=== PATIENT | male | born 1985 | race Caucasian/White ===

== ENCOUNTER 2020-04-21 13:27 | Emergency (ER) | payer MEDICAID, SELFPAY ==
[2020-04-21 13:52] VITALS: BP 150/91; PULSE 72; RESP 16; TEMP 36.7; O2SAT 93; BMI 47.5
--- NOTE | 2020-04-21 14:27 | HMH.EDUTC ---
[facility] [place] Disposition Clinical Impression: Exposure to COVID-19 virus Disposition: Home, Self-Care Condition on Discharge: Good Instructions: Preventing the Spread of Coronavirus Discharge Instructions Additional Instructions: Drink plenty of fluids. Take tylenol for pain or fever. Follow up with your regular doctor. GO TO THE ER FOR ANY WORSENING SYMPTOMS FOLLOW THE DIRECTIONS ON THE COVID-19 HAND OUT THAT WE GAVE YOU REGARDING SELF-ISOLATION UNTIL YOU KNOW YOUR COVID-19 RESULTS Referrals: PCP,No [Primary Care Provider] - Forms: Work/School Release Time of Disposition: 14:39 Medical Decision Making - Medical Records Medical records reviewed: No: I reviewed the patient's medical records. - Theo Inquiry Pt receiving controlled substance: No Vital Signs: 04/21/20 13:52 04/21/20 14:46 Temperature 98.1 F 98.1 F Temperature Source Oral Oral Pulse Rate 72 Pulse Rate [Radial] 72 Respiratory Rate 16 16 Blood Pressure 150/91 H Blood Pressure [Right Arm] 150/91 H Blood Pressure Mean [Right Arm] 110 Blood Pressure Source Automatic Cuff Blood Pressure Source [Right Arm] Automatic Cuff Blood Pressure Position Sitting Blood Pressure Position [Right Arm] Sitting 02 Sat by Pulse Oximetry 93 L Oxygen Delivery Method Room Air Room Air Orders (Tests/Meds): ORDERS Category Date Time Status Covid-19 Nasal PCR Sendout Adam Routine Lab 04/21/20 13:45 Received [facility] [place] HPI - General Stated complaint: weakness wants covid test Time Seen by Provider: 04/21/20 13:35 Mode of Arrival: Ambulatory Source of Information: Patient Limitations: No Limitations Description of Symptoms (Recalled from Triage Doc. by RN): POSSIBLE EXPOSURE TO COVID HEENT Symptoms (Recalled from RN notes): No Resp Symptoms (Recalled from RN notes): No Skin Symptoms (Recalled from RN notes): No MS Symptoms (Recalled from RN notes): No Functional Status (Recalled from RN notes): WNL - History of Present Illness Provider Complaint: He c/o feeling weak and not feeling well since yesterday. He has had some deep leg pain. He denies any fever or chills or respiratory symptoms. - Related Data Previous Rx's Medication Instructions Recorded Azithromycin [Z-Ian 250mg Tab*] 250 mg PO UD DOSE PK #6 tab 03/26/19 Brompheniramine/Pseudoephed/Dm 5 ml PO Q6HP PRN #240 syrup 03/26/19 [Bromfed Dm Cough Syrup] guaiFENesin [Mucinex 600mg tablet] 600 mg PO BIDP PRN #30 tab.er.12h 03/26/19 methylPREDNISolone [Medrol] 4 mg PO DIRECTED 6 Days #21 03/26/19 tab.ds.pk Allergies Allergy/AdvReac Type Severity Reaction Status Date / Time No Known Allergies Allergy Verified 03/26/19 16:04 - Worker's Comp Is this a Worker's Comp case?: No H History - Hepatitis A Screen Drug use history?: No High risk sexual behaviors?: No History of sexually transmitted infection?: No Currently employed?: No Childcare worker?: No Do you have indoor plumbing?: Yes Do you have electricity?: Yes Attestation statement:: This patient has been screened for Hepatitis A risk factors. I have reviewed the patient's past medical history: Yes - Social History Smoking Status: Unknown if ever smoked Tobacco Type: smokeless tobacco # Packs/Day (cigarettes): 0 Alcohol Intake: never Occupational Status: employed ROS Obtained: Yes All systems reviewed & no additional complaints - Constitutional Constitutional: Reports system reviewed and no additional complaints, except as docu - Eyes Eyes: Reports system reviewed and no additional complaints, except as docu - ENT Ears, Nose, Mouth, and Throat: Reports system reviewed and no additional complaints, except as docu - Cardiovascular Cardiovascular: Reports system reviewed and no additional complaints, except as docu - Respiratory Respiratory: Yes system reviewed and no additional complaints, except as docu - Gastrointestinal Gastrointestingal: Reports: system reviewed and n
[2020-04-21 14:46] VITALS: BP 150/91; PULSE 72; RESP 16; TEMP 36.7; O2SAT 93
[2020-04-22 14:14] LABS: Covid-19 Nasal PCR Sendout Lex NOT DETECTED
== END 2020-04-21 14:47 | disposition home or self-care (01) ==
PROVIDERS: Emergency Provider Nurse Practitioner Family
DX: Z20.828 Contact with and (suspected) exposure to other viral communicable diseases (principal)
CPT/HCPCS: 99201; U0004

== ENCOUNTER 2020-07-04 17:09 | Emergency (ER) | payer MEDICAID, SELFPAY ==
[2020-07-04 17:19] VITALS: BP 140/84; PULSE 79; RESP 19; TEMP 36.8; O2SAT 97; BMI 56.9
[2020-07-04 17:41] VITALS: BP 140/84; PULSE 79; RESP 19; TEMP 36.8; O2SAT 97; BMI 56.9
--- NOTE | 2020-07-04 17:47 | HMH.EDUTC ---
[facility] [place] Disposition Clinical Impression: Sinusitis Qualifiers: Sinusitis location: unspecified location Chronicity: acute Recurrence: non-recurrent Qualified Code(s): J01.90 - Acute sinusitis, unspecified Disposition: Home, Self-Care Condition on Discharge: Good Instructions: Sinusitis, DI for Sinusitis Additional Instructions: Drink plenty of fluids. Take tylenol or ibuprofen for pain or fever. Take the medications as directed. Follow up with your regular doctor. GO TO THE ER FOR ANY WORSENING SYMPTOMS Prescriptions: Brompheniramine/Pseudoephed/Dm [Bromfed Dm Cough Syrup] 5 ml PO Q6HP PRN #240 syrup PRN Reason: Cough Transmission Status: Received by [facility] Amoxicillin/Potassium Clav [Augmentin 875-125 Tablet] 1 tab PO Q12H 10 Days #20 tab Transmission Status: Received by [facility] predniSONE [Deltasone 10mg tablet] 10 mg PO BID 4 Days #8 tab Transmission Status: Received by [facility] Referrals: PCP,No [Primary Care Provider] - Time of Disposition: 18:21 Medical Decision Making - Medical Records Medical records reviewed: No: I reviewed the patient's medical records. - Theo Inquiry Pt receiving controlled substance: No Vital Signs: 07/04/20 17:19 07/04/20 17:41 07/04/20 18:36 Temperature 98.3 F 98.3 F 98.3 F Temperature Source Oral Oral Pulse Rate 79 Pulse Rate [Left] 79 79 Respiratory Rate 19 19 19 Blood Pressure 140/84 Blood Pressure [Right Arm] 140/84 140/84 Blood Pressure Mean [Right Arm] 102 102 Blood Pressure Source [Right Arm] Manual Cuff/ Palpation Automatic Cuff Blood Pressure Position [Right Arm] Sitting Sitting 02 Sat by Pulse Oximetry 97 97 Oxygen Delivery Method Room Air Room Air Orders (Tests/Meds): ED MEDICATIONS Discontinued Medications Generic Name Dose Route Start Last Admin Trade Name Freq PRN Reason Stop Dose Admin Ceftriaxone Sodium 1 gm 07/04/20 17:51 07/04/20 18:06 Ceftriaxone 1gm Vial IM 07/04/20 17:52 1 gm ONCE ONE Administration Protocol Lidocaine HCl 0 ml 07/04/20 17:51 07/04/20 18:06 Lidocaine 1% 5ml Pf Vial IM 07/04/20 17:52 2.1 ml ONCE ONE Administration Methylprednisolone Sodium Succinate 125 mg 07/04/20 17:51 07/04/20 18:03 Methylprednisolone Sod Succ 125mg Vial IM 07/04/20 17:52 125 mg ONCE ONE Administration [facility] [place] HPI - General Stated complaint: head congestion Time Seen by Provider: 07/04/20 17:47 Source of Information: Patient, Spouse, Significant Other HEENT Symptoms (Recalled from RN notes): No Resp Symptoms (Recalled from RN notes): Yes Skin Symptoms (Recalled from RN notes): No MS Symptoms (Recalled from RN notes): No Functional Status (Recalled from RN notes): wnl - History of Present Illness Provider Complaint: He c/o sinus congestion and ear pain for the past 3 days. He denies any fever or chills. - Related Data Previous Rx's Medication Instructions Recorded Amoxicillin/Potassium Clav 1 tab PO Q12H 10 Days #20 tab 07/04/20 [Augmentin 875-125 Tablet] Brompheniramine/Pseudoephed/Dm 5 ml PO Q6HP PRN #240 syrup 07/04/20 [Bromfed Dm Cough Syrup] predniSONE [Deltasone 10mg tablet] 10 mg PO BID 4 Days #8 tab 07/04/20 Allergies Allergy/AdvReac Type Severity Reaction Status Date / Time No Known Allergies Allergy Verified 07/04/20 17:44 - Worker's Comp Is this a Worker's Comp case?: No Is this an [facility] Worker's Comp?: No Is this a [place] Worker's Comp?: No [facility] History - Hepatitis A Screen Drug use history?: No High risk sexual behaviors?: No History of sexually transmitted infection?: No Currently employed?: No Childcare worker?: No Do you have indoor plumbing?: No Do you have electricity?: Yes Attestation statement:: This patient has been screened for Hepatitis A risk factors. I have reviewed the patient's past medical history: Yes - Social History Smoking Status: Never smoker Tobacco Type: smok
[2020-07-04 18:36] VITALS: BP 140/84; PULSE 79; RESP 19; TEMP 36.8; O2SAT 97
== END 2020-07-04 18:48 | disposition home or self-care (01) ==
PROVIDERS: Emergency Provider Nurse Practitioner Family
DX: J01.90 Acute sinusitis, unspecified (principal); F17.290 Nicotine dependence, other tobacco product, uncomplicated
CPT/HCPCS: 96372; 99201

== ENCOUNTER 2020-07-16 11:54 | Emergency (ER) | payer MEDICAID, SELFPAY ==
[2020-07-16 12:20] VITALS: BP 148/91; PULSE 68; RESP 19; TEMP 36.8; O2SAT 98; BMI 54.5
--- NOTE | 2020-07-16 12:50 | HMH.EDUTC ---
[facility] [place] Disposition Clinical Impression: Exposure to COVID-19 virus Disposition: Home, Self-Care Condition on Discharge: Good Instructions: DI for COVID-19 (Suspected or Confirmed ), COVID-19: Testing and Tracing, Preventing the Spread of Coronavirus Discharge Instructions Additional Instructions: *Monitor Temp, Over the counter Motrin or Tylenol as directed/as needed Tylenol every 4 hours and Motrin every 6 hours (as long as your family doctor has told you that you can take it) for fever or pain. and straight to ER if unable to lower temp less than 101.0 after medication given Follow up IMMEDIATELY for new or worsening symptoms or no Noticeable improvement over the next 48-72 hours. 911 for difficulty breathing or swallowing You were tested for today for COVID19 your test result should be back in the next 24-48 hours, you may call to the [facility] to see if your test results are back in the next 48 hours [phone] [facility] hours are 9am-9pm You was given a handout with instructions for Self Quarantine and Self isolation for while you wait on test results and what to do if they are positive If you are positive the Health Dept will be contacting you also Referrals: PCP,No [Primary Care Provider] - As needed Forms: Work/School Release Time of Disposition: 12:51 Medical Decision Making - Theo Inquiry Pt receiving controlled substance: No Theo was queried for this patient: No Vital Signs: 07/16/20 12:20 Temperature 98.3 F Temperature Source Oral Pulse Rate [Right Brachial] 68 Respiratory Rate 19 Blood Pressure [Right Arm] 148/91 H Blood Pressure Mean [Right Arm] 110 Blood Pressure Source [Right Arm] Automatic Cuff Blood Pressure Position [Right Arm] Sitting 02 Sat by Pulse Oximetry 98 Oxygen Delivery Method Room Air Orders (Tests/Meds): ORDERS Category Date Time Status Covid-19 Nasal PCR ([facility]) Routine Lab 07/16/20 11:56 Ordered [facility] [place] HPI - General Stated complaint: covid test Time Seen by Provider: 07/16/20 12:50 Mode of Arrival: Ambulatory Source of Information: Patient Limitations: No Limitations Description of Symptoms (Recalled from Triage Doc. by RN): COVID TEST D/T EXPOSURE. C/O FATIGUE X 2 DAYS HEENT Symptoms (Recalled from RN notes): No Resp Symptoms (Recalled from RN notes): No Skin Symptoms (Recalled from RN notes): No MS Symptoms (Recalled from RN notes): No Functional Status (Recalled from RN notes): WNL - History of Present Illness Provider Complaint: Patient states that mother recently tested positive for COVID States that he lives with her and has been feeling tired and having body aches so he come in to get tested - Related Data Allergies Allergy/AdvReac Type Severity Reaction Status Date / Time No Known Allergies Allergy Verified 07/04/20 17:44 - Worker's Comp Is this a Worker's Comp case?: No H History - Hepatitis A Screen Drug use history?: No High risk sexual behaviors?: No History of sexually transmitted infection?: No Currently employed?: No Childcare worker?: No Do you have indoor plumbing?: Yes Do you have electricity?: Yes Attestation statement:: This patient has been screened for Hepatitis A risk factors. I have reviewed the patient's past medical history: Yes - Social History Smoking Status: Never smoker Tobacco Type: smokeless tobacco # Packs/Day (cigarettes): 0 Alcohol Intake: never Occupational Status: other ROS Obtained: Yes All systems reviewed & no additional complaints, Yes Systems reviewed as appropriate & no additional complaints - Constitutional Constitutional: Reports system reviewed and no additional complaints, except as docu, Reports body ache, Reports fatigue Physical Exam - General General appearance: alert, in no apparent distress - ENT ENT exam: Present: normal exam, normal oropharynx, mucous membranes moist, TM's normal bilaterally, normal external ear exam - Respiratory Respiratory exam: Present: normal lung sounds b
[2020-07-16 13:02] VITALS: BP 148/91; PULSE 68; RESP 19; TEMP 36.8; O2SAT 98
--- NOTE | 2020-07-16 20:36 | PC.NURSE ---
PT NOTIFIED OF POSITIVE COVID RESULT
== END 2020-07-16 13:03 | disposition home or self-care (01) ==
PROVIDERS: Emergency Provider Nurse Practitioner
DX: U07.1 COVID-19 (principal)
CPT/HCPCS: 99202; G0463; U0003

== ENCOUNTER → 2021-08-07 13:24 | Outpatient (CLI) | payer MEDICAID, SELFPAY | PROVIDERS: Visit Provider Nurse Practitioner | DX: U07.1 COVID-19 (principal) | CPT/HCPCS: C9803; U0003; U0005 ==

== ENCOUNTER 2021-09-13 14:51 | Emergency (ER) | payer MEDICAID, SELFPAY ==
--- NOTE | 2021-09-13 15:45 | HMH.EDUTC ---
[facility] [place] Disposition Clinical Impression: Ingrown nail Cellulitis Qualifiers: Site of cellulitis: extremity Site of cellulitis of extremity: lower extremity Laterality: left Qualified Code(s): L03.116 - Cellulitis of left lower limb Disposition: Home, Self-Care Condition on Discharge: Good Instructions: Cellulitis, DI for Infected Ingrown Toenail Additional Instructions: Soak the foot in warm epsom salts water three or four times per day. Take the antibiotics as directed. Follow up with your regular doctor. Follow up with Dr. Olmos (podiatry). I put in referral but you need to call her office and get an appointment. GO TO THE ER FOR ANY WORSENING SYMPTOMS OR CONCERNS Prescriptions: Mupirocin [Bactroban 2% Ointment 22gm tube] 1 applicatio TP TID 7 Days #1 gm Transmission Status: Pending to [facility] cephALEXin [cephALEXin 500mg capsule] 500 mg PO Q6H 10 Days #40 cap Transmission Status: Pending to [facility] Referrals: Provider,MD Héctor [Primary Care Provider] - Leti Olmos DPM [Staff Physician] - Time of Disposition: 17:07 Medical Decision Making - Medical Records Medical records reviewed: No: I reviewed the patient's medical records. - Theo Inquiry Pt receiving controlled substance: No Vital Signs: 09/13/21 15:52 Temperature 98.3 F Temperature Source Oral Pulse Rate [Left Radial] 68 Respiratory Rate 19 Blood Pressure [Left Arm] 148/91 H Blood Pressure Mean [Left Arm] 110 Blood Pressure Source [Left Arm] Automatic Cuff Blood Pressure Position [Left Arm] Sitting 02 Sat by Pulse Oximetry 98 Oxygen Delivery Method Room Air Orders (Tests/Meds): ED MEDICATIONS Discontinued Medications Generic Name Dose Route Start Last Admin Trade Name Freq PRN Reason Stop Dose Admin Ceftriaxone Sodium 1 gm 09/13/21 16:38 09/13/21 16:47 Ceftriaxone 1gm Vial IM 09/13/21 16:39 1 gm ONCE ONE Administration Lidocaine HCl 0 ml 09/13/21 16:38 09/13/21 16:47 Lidocaine 1% 5ml Pf Vial IM 09/13/21 16:39 2 ml ONCE ONE Administration [facility] [place] HPI - General Stated complaint: infected toenail lt foot Time Seen by Provider: 09/13/21 15:45 - History of Present Illness Provider Complaint: He has had pain and swelling around the medial fold of his right great toe for the past 10 days. He denies any injury. - Related Data Previous Rx's Medication Instructions Recorded Mupirocin [Bactroban 2% Ointment 1 applicatio TP TID 7 Days #1 gm 09/13/21 22gm tube] cephALEXin [cephALEXin 500mg 500 mg PO Q6H 10 Days #40 cap 09/13/21 capsule] Allergies Allergy/AdvReac Type Severity Reaction Status Date / Time No Known Allergies Allergy Verified 07/04/20 17:44 [facility] History - Hepatitis A Screen Attestation statement:: This patient has been screened for Hepatitis A risk factors. I have reviewed the patient's past medical history: Yes - Social History Smoking Status: Never smoker Tobacco Type: smokeless tobacco # Packs/Day (cigarettes): 0 Alcohol Intake: never Occupational Status: other ROS Obtained: Yes All systems reviewed & no additional complaints - Constitutional Constitutional: Denies chills, Denies fever(s) - Musculoskeletal Musculoskeletal: Reports as per HPI - Integumentary/Breasts Skin/Breast: Reports as per HPI - Neurologic Neurologic: Denies tingling/numbness/burning sensations Physical Exam - General General appearance: alert, in no apparent distress - Head Head exam: atraumatic, normocephalic, normal inspection - Eye Eye exam: Present: normal appearance, PERRL, EOMI - ENT ENT exam: Present: normal exam, normal oropharynx, mucous membranes moist, normal external ear exam - Neck Neck exam: Present: normal inspection, full ROM, trachea midline. Absent: meningismus, lymphadenopathy - Chest Chest inspection: Present: normal inspection, symmetric chest wall rise. Absent: tenderness
[2021-09-13 15:52] VITALS: BP 148/91; PULSE 68; RESP 19; TEMP 36.8; O2SAT 98; BMI 48.8
[2021-09-13 17:15] VITALS: BP 150/92; PULSE 87; RESP 16; TEMP 36.8; O2SAT 98
== END 2021-09-13 17:15 | disposition home or self-care (01) ==
PROVIDERS: Emergency Provider Nurse Practitioner Family
DX: L60.0 Ingrowing nail (principal); L03.116 Cellulitis of left lower limb
CPT/HCPCS: 96372; 99212; G0463; J0696

== ENCOUNTER 2024-01-14 14:48 | Outpatient (CLI) | payer MEDICAID, SELFPAY ==
[2024-01-14 15:55] VITALS: BMI 47.0
== END 2024-01-14 23:59 | disposition home or self-care (01) ==
LOC: DIETICIAN 14:50
PROVIDERS: PCP Internal Medicine; Visit Provider Internal Medicine
DX: E66.01 Morbid (severe) obesity due to excess calories (principal); Z68.42 Body mass index [BMI] 45.0-49.9, adult
CPT/HCPCS: 97802

== ENCOUNTER 2024-02-18 18:57 | Outpatient (CLI) | payer MEDICAID, SELFPAY ==
[2024-02-18 19:26] LABS: Basophils % 0.5 % (0.1-2.0); Eosinophils # 0.1 K/mm3 (0.0-0.4); Eosinophils % 1.4 % (0.1-12.0); Hematocrit 51.6 % (42.0-52.0); Lymphocytes # 1.8 K/mm3 (0.7-4.5); Lymphocytes % 22.5 % (10-50); Mean Corpuscular HGB Conc 30.9 g/dL (31.8-35.4); Mean Corpuscular Hemoglobin 28.9 pg (27.0-31.2); Mean Corpuscular Volume 93.4 fl (80-94); Monocytes # 0.6 K/mm3 (0.1-1.0); Monocytes % 7.6 % (1.7-9.3); Neutrophils # 5.3 K/mm3 (1.8-7.8); Neutrophils % 68.1 % (37.0-80.0); Platelet Count 277 K/mm3 (142-424); Red Blood Count 5.53 M/mm3 (4.60-6.20); Red Cell Distribution Width 14.6 % (11.5-17.5); White Blood Count 7.9 K/mm3 (4.8-10.8)
[2024-02-18 19:46] LABS: Albumin Level 4.3 g/dl (3.5-5.0); Chloride 104 mmol/L (98-107); Sodium 138 mmol/L (136-145)
[2024-02-18 19:47] LABS: Potassium 4.5 mmoL/L (3.5-5.1)
[2024-02-18 19:49] LABS: Alanine Aminotransferase 39 U/L (12-78); Albumin/Globulin Ratio 1.8 (1.1-1.8); Alkaline Phosphatase 65 U/L (38-126); Anion Gap 7.5 mEq/L (5-15); Aspartate Amino Transferase 38 U/L (17-59); Bilirubin,Total 0.8 mg/dl (0.2-1.3); Blood Urea Nitrogen 14 mg/dl (9-20); Carbon Dioxide 31 mmol/L (22.0-30.0); Estimated Glomerular Filt Rate 93 ml/min (>60); GFR (African American) 113 ML/MIN (>60); Globulin 2.4 g/dL (1.3-3.2); Total Protein,Serum 6.7 g/dl (6.3-8.2)
[2024-02-18 19:50] LABS: Calcium 9.1 mg/dl (8.4-10.2); Chol/HDL Ratio 2.9 (1-3.5); Cholesterol 138 mg/dl (140-200); Glucose 95 mg/dl (74-100); HDL Cholesterol 48 mg/dl (40-60); Triglycerides 38 mg/dl (30-150); VLDL Cholesterol 8 mg/dL (0-40)
[2024-02-18 20:01] LABS: Direct LDL Cholesterol 68.16 mg/dL (100-129)
[2024-02-18 20:21] LABS: Thyroid Stimulating Hormone 1.57 uIU/mL (0.465-4.68)
[2024-02-18 20:35] LABS: Creatinine,Urine Random 175 mg/dL (Not Estab.)
[2024-02-18 20:38] LABS: Microalbumin/Creatinine Ratio 3.4
[2024-02-18 20:50] LABS: 25-OH Vitamin D, Total 24.3 ng/mL (30-100)
[2024-02-18 21:03] LABS: Prostate Specific Ag Screen 0.7 ng/ml (0.0-4.0)
== END 2024-02-18 23:59 | disposition home or self-care (01) ==
LOC: LAB.DROPOF 18:58
PROVIDERS: PCP Internal Medicine; Visit Provider Internal Medicine
DX: Z00.00 Encounter for general adult medical examination without abnormal findings (principal)
CPT/HCPCS: 80050; 80053; 80061; 82043; 82306; 82570; 84443; 85025; G0103

== ENCOUNTER 2024-02-18 19:05 | Outpatient (CLI) | payer MEDICAID, SELFPAY | END 2024-02-18 23:59 | disposition home or self-care (01) | LOC: LAB.DROPOF 19:06 | PROVIDERS: PCP Internal Medicine; Visit Provider Internal Medicine | DX: Z02.9 Encounter for administrative examinations, unspecified (principal) ==

== ENCOUNTER → 2024-02-27 10:27 | Outpatient (CLI) | payer MEDICAID, SELFPAY | LOC: SL 10:27 | PROVIDERS: PCP Internal Medicine; Visit Provider Specialist | DX: G47.33 Obstructive sleep apnea (adult) (pediatric) (principal); G47.36 Sleep related hypoventilation in conditions classified elsewhere | CPT/HCPCS: G0399 ==

== ENCOUNTER → 2024-04-22 20:27 | Outpatient (CLI) | payer MEDICAID, SELFPAY | LOC: SL 20:28 | PROVIDERS: PCP Internal Medicine; Visit Provider Specialist | DX: G47.33 Obstructive sleep apnea (adult) (pediatric) (principal); R06.83 Snoring; Z91.89 Other specified personal risk factors, not elsewhere classified; E66.01 Morbid (severe) obesity due to excess calories; Z68.41 Body mass index [BMI] 40.0-44.9, adult | CPT/HCPCS: 95810 ==

== ENCOUNTER 2024-04-27 18:30 | Emergency (ER) | payer MEDICAID, SELFPAY ==
[2024-04-27 18:50] VITALS: BP 130/91; PULSE 74; RESP 19; TEMP 36.8; O2SAT 96; BMI 50.4
--- NOTE | 2024-04-27 19:20 | ED_ITS ---
Discharge Plan Disposition Patient Disposition: Home, Self-Care Condition: Good Prescriptions Prescriptions: New azithromycin [Zithromax Z-Ian] 250 mg tablet See Rx Instructions .ROUTE .COMPLEX 5 Days Qty: 6 0RF Rx Instructions: For 250 mg dose pack: take 500 mg today (day 1), then 250 mg for 4 days (days 2-5) benzonatate 100 mg capsule 100 mg PO TID PRN (Reason: cough) Qty: 30 0RF methylprednisolone [Medrol (Ian)] 4 mg tablets,dose pack See Rx Instructions .Route .COMPLEX 6 Days Qty: 21 0RF Rx Instructions: taper pack; Referrals Follow up/Referrals: Esteban Stuart DO [Primary Care Provider] - See instructions Activity Restrictions/Add. Instructions Additional Instructions/Restrictions: *Monitor Temp, Over the counter Motrin or Tylenol as directed/as needed Tylenol every 4 hours and Motrin every 6 hours (as long as your family doctor has told you that you can take it) for fever or pain. and straight to ER if unable to lower temp less than 101.0 after medication given *Warm salt water gargles may help to soothe the throat *Throat Lozenges? *Warm fluids like tea with honey may help to soothe the throat?and help with irritation from the drainage? *Sleep elevated *Humidifier/Vaporizer Take medication as prescribed Follow up IMMEDIATELY for new or worsening symptoms or no Noticeable improvement over the next 48-72 hours. 911 for difficulty breathing or swallowing Clinical Impressions Clinical Impression: Sinusitis Qualifiers: Sinusitis location: unspecified location Chronicity: unspecified Qualified Code(s): J32.9 - Chronic sinusitis, unspecified Instructions Patient Instructions: Sinusitis, DI for Sinusitis Print Language Print Language: Malay Discharge ED Provider: Tammy Serrano [facility] General Stated complaint: sinus drainage Mode of Arrival: Ambulatory Source of Information: Patient Limitations: No Limitations Time Seen by Provider: 04/27/24 19:20 Description of Symptoms (Recalled from Triage Doc. by RN): PATIENT C/O COUGH AND SINUS DRAINAGE THAT STARTED SATURDAY HEENT Symptoms (Recalled from RN notes): Yes Resp Symptoms (Recalled from RN notes): Yes Skin Symptoms (Recalled from RN notes): No MS Symptoms (Recalled from RN notes): No Functional Status (Recalled from RN notes): WNL History of Present Illness Provider Complaint: Patient states that he gets a sinus infection around this time every year and has to come in and get checked States that he is having sinus pain and pressure and drainage in the back of his throat States got worse since Saturday and having the pressure behind his eyes so he came in today to get checked Related Data Previous Rx's ?Medication ?Instructions ?Recorded azithromycin 250 mg tablet See Rx Instructions PO .COMPLEX 5 04/27/24 (Zithromax Z-Ain) days #6 tabs benzonatate 100 mg capsule 100 mg PO TID PRN cough #30 caps 04/27/24 methylprednisolone 4 mg tablets in See Rx Instructions .Route 04/27/24 a dose pack (Medrol (Ian)) .COMPLEX 6 days #21 tabs Allergies Allergy/AdvReac Type Severity Reaction Status Date / Time No Known Allergies Allergy Verified 02/18/24 08:34 Worker's Comp Is this a Worker's Comp case?: No [facility] Disclaimer: The information contained in this section may have been updated after the patient was seen, as this information can be updated by other users. Medical History (Updated 04/27/24 @ 19:27 by Tammy Serrano APRN) Sleep-disordered breathing Snoring Obesity, morbid, BMI 40.0-49.9 Surgical History No history of previous surgery Family History (Updated 01/31/24 @ 08:36 by Maria Ines Pineda) Other Heart attack Social History (Updated 01/31/24 @ 08:38 by Maria Ines Pineda) Smoking Status: Never smoker second hand exposure: No alcohol intake: current alcohol intake frequency: holidays/special occasions only substance use type: denies use current occupational status: employed Travel in the last 8 weeks: None household members: family housing: house marital status: single number of children: 0 ROS Obtained: Yes All systems reviewed & no additional complaints except as documented and Yes Systems reviewed as appropriate & no additional complaints except as documented Constitutional Constitutional: Reports system reviewed and no additional complaints, except as documented and Reports as per HPI ENT Ears, Nose, Mouth, and Throat: Reports system reviewed and no additional complai nts, except as documented, Reports as per HPI, Reports sinus pain and Reports sinus pressure Cardiovascular Cardiovascular: Reports system reviewed and no additional complaints, except as documented and Reports as per HPI Respiratory Respiratory: Reports system reviewed and no additional complaints, except as documented, Reports as per HPI, Denies shortness of breath and Reports cough Gastrointestinal Gastrointestingal: Reports system reviewed and no additional complaints, except as documented and as per HPI Physical Exam General General appearance: alert and in no apparent distress ENT ENT exam: Present mucous membranes moist Expanded ENT Exam Nose exam: Present sinus tenderness Throat exam: Present other (PND noted) Respiratory Respiratory exam: Present normal lung sounds bilaterally; Absent respiratory distress or wheezes Cardiovascular Cardiovascular exam: Present regular rate, normal rhythm and normal heart sounds Neurological Exam Neurological exam: Present alert, oriented X3 and normal gait Medical Decision Making Medical Records Screening: Per USPSTF and CDC recommendations, given the prevalence of disease in our region, it is our hospital?s policy to screen for HIV and viral Hepatitis for all patients aged 18 and over and those with ongoing risk factors. Theo Inquiry Pt receiving controlled substance: No Theo was queried for this patient: No Vital Signs: 04/27/24 18:50 Temperature 98.3 F Temperature Source Oral Pulse Rate [Left Brachial] 74 Respiratory Rate 19 Blood Pressure [Left Arm] 130/91 H Blood Pressure Mean [Left Arm] 104 Blood Pressure Source [Left Arm] Automatic Cuff Blood Pressure Position [Left Arm] Sitting 02 Sat by Pulse Oximetry 96 Oxygen Delivery Method Room Air
[2024-04-27] MEDS: LIDOCAINE 1% 5ML PF VIAL IM (19:30)
[2024-04-27] MEDS: METHYLPREDNISOLONE SOD SUCC 125MG VIAL 125 MG IM (19:30)
[2024-04-27] MEDS: cefTRIAXone 1GM VIAL 1 GM IM (19:30)
[2024-04-27 19:46] VITALS: BP 130/91; PULSE 74; RESP 19; TEMP 36.8; O2SAT 96
== END 2024-04-27 19:49 | disposition home or self-care (01) ==
PROVIDERS: Emergency Provider Nurse Practitioner; PCP Internal Medicine
DX: J32.9 Chronic sinusitis, unspecified (principal)
CPT/HCPCS: 96372; 99213; G0381; J0696; J2919